=== PATIENT | male | born 1955 | race African-American/Black ===

== ENCOUNTER 2021-08-13 07:56 | Emergency (ER) | payer MEDICAID, MEDICARE ==
[2021-08-13 09:27] LABS: Bilirubin Negative (Negative); Blood, Urine 2+ (Negative); Clarity Turbid (Clear); Glucose, Urine (Dipstick) Normal (Negative); Ketone, Urine 10 mg/dL (Negative); Leukocyte 250 Leu/uL (Negative); Nitrite Negative (Negative); Protein, Urine (Dipstick) 10 mg/dL (Neg-Trace); Specific Gravity, Urine 1.016 (1.002-1.036); Squamous Epithelial None Seen HPF (0-3); Urobilinogen Normal mg/dL (Less than 2); WBC/HPF 21-50 HPF (0-3)
[2021-08-13 09:28] LABS: Bacteria/HPF Rare-Few HPF (None Seen)
== END 2021-08-13 10:10 | disposition home or self-care (01) ==
LOC: ERS 07:56 → EDBD 07:56 → ERS 10:10
DX: N39.0 Urinary tract infection, site not specified (principal); I10 Essential (primary) hypertension
CPT/HCPCS: 51702; 81003; 81015; 87077; 87086; 87186

== ENCOUNTER 2021-11-21 16:46 | Emergency (ER) | payer MEDICAID ==
[2021-11-21 19:57] LABS: Bilirubin Negative (Negative); Blood, Urine 2+ (Negative); Clarity Turbid (Clear); Glucose, Urine (Dipstick) Normal (Negative); Ketone, Urine Negative (Negative); Leukocyte 500 Leu/uL (Negative); Mucous/LPF Rare LPF (<2+); Nitrite 2+ (Negative); Protein, Urine (Dipstick) 30 mg/dL (Neg-Trace); Specific Gravity, Urine 1.028 (1.002-1.036); Squamous Epithelial 0-3 HPF (0-3); Urobilinogen Normal mg/dL (Less than 2); WBC/HPF Greater than 50 HPF (0-3); pH, Urine 6.5 (5.0-9.0)
[2021-11-21 20:03] LABS: RBC/HPF 21-50 HPF (0-3)
[2021-11-21 20:04] LABS: Bacteria/HPF 3+ HPF (None Seen)
== END 2021-11-21 20:52 | disposition home or self-care (01) ==
LOC: ERS 16:46
DX: T83.091A Other mechanical complication of indwelling urethral catheter, initial encounter (principal); N39.0 Urinary tract infection, site not specified; I10 Essential (primary) hypertension
CPT/HCPCS: 81003; 81015; 87077; 87086; 87186; 99283